=== PATIENT | male | born 1945 | race Caucasian/White ===

== ENCOUNTER 2024-03-03 09:10 | Day surgery (SDC) | payer MEDICARE, SELFPAY ==
[2024-02-28 08:06] VITALS: BMI 20.7
[2024-03-03] MEDS: Tetracaine HCl/PF 0.5% Oph Sol 4 ML DROPS 1 DROP EYE-LEFT (10:25)
[2024-03-03] MEDS: Cyclopentolate 1 % Ophth Sol 2 ML DRPBTL 1 DROP EYE-LEFT ×3 (10:26→10:42)
[2024-03-03] MEDS: Tropicamide 1 % Ophth Sol 3 ML BTL 1 DROP EYE-LEFT ×3 (10:28→10:44)
[2024-03-03] MEDS: Ketorolac Tromethamine 0.5% Op 10 ML DROPS 1 DROP EYE-LEFT ×3 (10:30→10:46)
[2024-03-03] MEDS: Phenylephrine HCL 2.5% Oph SoL 2 ML BOTTLE 1 DROP EYE-LEFT ×3 (10:32→10:48)
[2024-03-03] MEDS: Lactated Ringers 500 ML 50 ML IV (10:34)
[2024-03-03 10:35] VITALS: BP 146/72; PULSE 66; RESP 16; TEMP 36.6; O2SAT 97
--- NOTE | 2024-03-03 10:40 | HO.ANESPROP2 ---
Documented by User: Marisa Goyal NP 02/28/24 14:29 HPI - Anesthesia Eval Consult details Narrative: 78yo M for Left Cataract Extraction IOL Insertion No previous cataract on record [facility] Past Medical History Medical History (Updated 02/28/24 @ 07:59 by Luann العلي RN) Hearing loss Hyperlipidemia BPH (benign prostatic hyperplasia) HTN (hypertension) Diabetes Palpitations Lung nodule Osteoporosis Microalbuminuria Macular degeneration of both eyes CKD (chronic kidney disease) Chronic constipation Surgical History Surgical History (Updated 03/03/24 @ 10:26 by Ivy Tipton) Hx of cholecystectomy History of pancreatic surgery Social History Social History Patient Tobacco Use Status: Former Tobacco user Advance Directives: No Advance Directives Information Provided: Yes Advance Directives on File: No Meds Allergies Allergy/AdvReac Type Severity Reaction Status Date / Time simvastatin Allergy Joint Pain Verified 03/03/24 10:26 Home Medications ?Medication ?Instructions ?Recorded ?Confirmed ?Last Taken ?Type amlodipine 10 mg tablet 10 mg PO DAILY 02/28/24 02/28/24 Unknown History atorvastatin 10 mg tablet 10 mg PO BEDTIME 02/28/24 02/28/24 Unknown History coenzyme Q10 10 mg capsule 10 mg PO DAILY 02/28/24 02/28/24 Unknown History hydrochlorothiazide 12.5 mg tablet 12.5 mg PO DAILY 02/28/24 02/28/24 Unknown History insulin glargine 100 unit/mL (3 20 unit subcut BEDTIME 02/28/24 03/03/24 03/02/24 History mL) subcutaneous pen (Lantus Solostar U-100 Insulin) metformin 1,000 mg tablet 1,000 mg PO BID 02/28/24 02/28/24 Unknown History multivit,calcium,min-folic acid 1 tab PO DAILY 02/28/24 02/28/24 Unknown History 240 mcg-D3 25 mcg-lycop 300 mcg tablet (One A Day Men Complete) olmesartan 40 mg tablet 40 mg PO DAILY 02/28/24 02/28/24 Unknown History polyethylene glycol 3350 17 17 g PO DAILY PRN Constipation 02/28/24 02/28/24 Unknown History gram/dose oral powder (Miralax) tamsulosin 0.4 mg capsule 0.4 mg PO DAILY 02/28/24 02/28/24 Unknown History Exam Height,Weight and Vital Signs: Height 5 ft 2.5 in Weight 52.163 kg Assessment and Plan Assessment Anesthesia Assessment: Chart Reviewed Documented by User: Savannah Neely, 03/03/24 10:43 [facility] Past Medical History Medical History (Updated 02/28/24 @ 07:59 by Luann العلي RN) Hearing loss Hyperlipidemia BPH (benign prostatic hyperplasia) HTN (hypertension) Diabetes Palpitations Lung nodule Osteoporosis Microalbuminuria Macular degeneration of both eyes CKD (chronic kidney disease) Chronic constipation Family History Family history of problems with anesthesia: No Surgical History Surgical History (Updated 03/03/24 @ 10:26 by Ivy Tipton) Hx of cholecystectomy History of pancreatic surgery History of Problems with Anesthesia: No Social History Social History Patient Tobacco Use Status: Former Tobacco user Advance Directives: No Advance Directives Information Provided: Yes Advance Directives on File: No Meds Allergies Allergy/AdvReac Type Severity Reaction Status Date / Time simvastatin Allergy Joint Pain Verified 03/03/24 10:26 Home Medications ?Medication ?Instructions ?Recorded ?Confirmed ?Last Taken ?Type amlodipine 10 mg tablet 10 mg PO DAILY 02/28/24 02/28/24 Unknown History atorvastatin 10 mg tablet 10 mg PO BEDTIME 02/28/24 02/28/24 Unknown History coenzyme Q10 10 mg capsule 10 mg PO DAILY 02/28/24 02/28/24 Unknown History hydrochlorothiazide 12.5 mg tablet 12.5 mg PO DAILY 02/28/24 02/28/24 Unknown History insulin glargine 100 unit/mL (3 20 unit subcut BEDTIME 02/28/24 03/03/24 03/02/24 History mL) subcutaneous pen (Lantus Solostar U-100 Insulin) metformin 1,000 mg tablet 1,000 mg PO BID 02/28/24 02/28/24 Unknown History multivit,calcium,min-folic acid 1 tab PO DAILY 02/28/24 02/28/24 Unknown History 240 mcg-D3 25 mcg-lycop 300 mcg tablet (One A Day Men Complete) olmesartan 40 mg tablet 40 mg PO DAILY 02/28/24 02/28/24 Unknown History polyethylene glycol 3350 17 17 g PO DAILY PRN Constipation 02/28/24 02/28/24 Unknown History gram/dose oral powder (Miralax) tamsulosin 0.4 mg capsule 0.4 mg PO DAILY 02/28/24 02/28/24 Unknown History Exam Exam Date and Time: March 03, 2024 1040 Airway Mallampati Class: II TM Dist: >3cm Neck ROM: Full Denture: Upper and Lower Heart: S1S2 Lungs: CTAB Assessment and Plan Assessment Anesthesia Assessment: Anesthesia Plan Discussed and Chart Reviewed Final Anesthetic Review Family History of Problems with Anesthesia: No History of Problems with Anesthesia: No NPO: Yes ASA Class: III Final Preanesthetic Review: No Changes in Pt Med Stat, Meds/Allgs Chart Reviewed, Consent Obtained/Reviewed (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 and Plan Disposition: Standard PACU
[2024-03-03 10:41] LABS: Glucose, Whole Blood 136 mg/dL (60-115)
--- NOTE | 2024-03-03 11:29 | MHC.SHP ---
Pre-Procedural Eval Section A - 24 Hr Update-Section A only Date of Service: 03/03/24 The patient is an INPATIENT: No Changes since office visit: No Cold of Flu in the past 2 weeks, No New Medical Problems, No Changes in Medication and No Patient answered all questions The patient has been examined within 24 hours of the surgical procedure. The History & Physical has been completed within 30 days and I have reviewed it.: Yes Section B - Complete if H&P > 30 days Chief Complaint: Age-related nuclear cataract, left eye Allergies: Allergies Allergy/AdvReac Type Severity Reaction Status Date / Time simvastatin Allergy Joint Pain Verified 03/03/24 10:26 Plan Diagnosis/Plan: Unchanged I have reviewed the history and physical and performed a pertinent physical examination on my patient. No changes have occurred unless specified. Time Spent With Patient Time: Total time managing care of this patient today ____ minutes.
--- NOTE | 2024-03-03 11:29 | HO.PNOPHT ---
Ophthalmology Procedure Procedure Date of Service: 03/03/24 Ophthalmology Viscoelastic: Healon Duet Dual Pack Pro Ophthalmology Lenses: IOL Acrysof MP - MA60AC (21) Procedure Notes: PREOPERATIVE DIAGNOSIS: Decreased visual acuity left eye secondary to cataract POSTOPERATIVE DIAGNOSIS: Same PROCEDURE: Left cataract extraction with intraocular lens insertion SURGEON: Teo Read M.D. ANESTHESIA: Topical/MAC ESTIMATED BLOOD LOSS: None COMPLICATIONS: None After obtaining informed consent, the patient was brought to the operation room suite and placed in the supine position. After adequate sedation per anesthesia, topical drops of Tetracaine were given to the left eye. The eye was then prepped and draped in the usual sterile fashion. The operating room microscope was then positioned over the operative eye and a lid speculum placed. A paracentesis was created. Viscoelastic was then instilled into the anterior chamber. A three plane incision was then created temporally, utilizing a 2.85 mm keratome. Capsulotomy forceps were then utilized to create a circular tear capsulotomy. Hydrodissection and hydrodelineation were carried out until adequate mobilization of the nucleus occurred. Phacoemulsification was then utilized to remove the dense central nucleus followed by removal of the cortical material utilizing the automated aspiration irrigation unit. Viscoat elastic was instilled into the posterior capsular bag followed by placement of a posterior chamber intraocular lens without difficulty. The residual Viscoat elastic was then removed utilizing the automated IA machine. The wound was check and found to be watertight. The patient tolerated the procedure well and the lid speculum was removed. Intracameral injection of Vigamox 0.1 mL followed by a subtenon injection of Kenalog-40 0.2 mL were administered. The patient will be seen in the a.m.
[2024-03-03 12:10] VITALS: BP 143/69; PULSE 68; RESP 18; TEMP 36.3; O2SAT 97
== END 2024-03-03 12:12 | disposition home or self-care (01) ==
PROVIDERS: PCP Internal Medicine; Visit Provider Ophthalmology
PROC: (CPT 66985; principal; 2024-03-03 11:20)
DX: H25.12 Age-related nuclear cataract, left eye (principal); H54.7 Unspecified visual loss; H40.013 Open angle with borderline findings, low risk, bilateral; H35.3132 Nonexudative age-related macular degeneration, bilateral, intermediate dry stage; H18.413 Arcus senilis, bilateral; I12.9 Hypertensive chronic kidney disease with stage 1 through stage 4 chronic kidney disease, or unspecified chronic kidney disease; E11.22 Type 2 diabetes mellitus with diabetic chronic kidney disease; N18.31 Chronic kidney disease, stage 3a; Z79.4 Long term (current) use of insulin; Z79.84 Long term (current) use of oral hypoglycemic drugs; Z79.899 Other long term (current) drug therapy; Z87.891 Personal history of nicotine dependence
CPT/HCPCS: 66984; 82947; J3010; J3301; V2630

== ENCOUNTER 2024-03-17 08:22 | Day surgery (SDC) | payer MEDICARE, SELFPAY ==
[2024-02-28 08:11] VITALS: BMI 20.7
--- NOTE | 2024-03-13 13:52 | HO.ANESPROP2 ---
HPI - Anesthesia Eval Consult details Narrative: 78yo M for Right Cataract Extraction IOL Insertion Left eye 03/03/24: Fent 50 PMFSH Past Medical History Medical History (Updated 02/28/24 @ 07:59 by Luann العلي RN) Hearing loss Hyperlipidemia BPH (benign prostatic hyperplasia) HTN (hypertension) Diabetes Palpitations Lung nodule Osteoporosis Microalbuminuria Macular degeneration of both eyes CKD (chronic kidney disease) Chronic constipation Family History Family history of problems with anesthesia: No Surgical History Surgical History (Updated 03/03/24 @ 10:50 by Ivy Tipton RN) H/O hand surgery Hx of cholecystectomy History of pancreatic surgery History of Problems with Anesthesia: No Social History Social History Patient Tobacco Use Status: Former Tobacco user Advance Directives: No Advance Directives Information Provided: Yes Advance Directives on File: No Meds Allergies Allergy/AdvReac Type Severity Reaction Status Date / Time simvastatin Allergy Joint Pain Verified 03/03/24 10:26 Home Medications ?Medication ?Instructions ?Recorded ?Confirmed ?Last Taken ?Type amlodipine 10 mg tablet 10 mg PO DAILY 02/28/24 02/28/24 Unknown History atorvastatin 10 mg tablet 10 mg PO BEDTIME 02/28/24 02/28/24 Unknown History coenzyme Q10 10 mg capsule 10 mg PO DAILY 02/28/24 02/28/24 Unknown History hydrochlorothiazide 12.5 mg tablet 12.5 mg PO DAILY 02/28/24 02/28/24 Unknown History insulin glargine 100 unit/mL (3 20 unit subcut BEDTIME 02/28/24 03/03/24 03/02/24 History mL) subcutaneous pen (Lantus Solostar U-100 Insulin) metformin 1,000 mg tablet 1,000 mg PO BID 02/28/24 02/28/24 Unknown History multivit,calcium,min-folic acid 1 tab PO DAILY 02/28/24 02/28/24 Unknown History 240 mcg-D3 25 mcg-lycop 300 mcg tablet (One A Day Men Complete) olmesartan 40 mg tablet 40 mg PO DAILY 02/28/24 02/28/24 Unknown History polyethylene glycol 3350 17 17 g PO DAILY PRN Constipation 02/28/24 02/28/24 Unknown History gram/dose oral powder (Miralax) tamsulosin 0.4 mg capsule 0.4 mg PO DAILY 02/28/24 02/28/24 Unknown History Exam Height,Weight and Vital Signs: Height 5 ft 2.5 in Weight 52.163 kg Assessment and Plan Assessment Anesthesia Assessment: Chart Reviewed Final Anesthetic Review Family History of Problems with Anesthesia: No History of Problems with Anesthesia: No
[2024-03-17] MEDS: Tetracaine HCl/PF 0.5% Oph Sol 4 ML DROPS 1 DROP EYE-RIGHT (10:47)
[2024-03-17] MEDS: Cyclopentolate 1 % Ophth Sol 2 ML DRPBTL 1 DROP EYE-RIGHT ×3 (10:48→11:04)
[2024-03-17] MEDS: Tropicamide 1 % Ophth Sol 3 ML BTL 1 DROP EYE-RIGHT ×3 (10:50→11:06)
[2024-03-17] MEDS: Ketorolac Tromethamine 0.5% Op 10 ML DROPS 1 DROP EYE-RIGHT ×3 (10:52→11:08)
[2024-03-17] MEDS: Phenylephrine HCL 2.5% Oph SoL 2 ML BOTTLE 1 DROP EYE-RIGHT ×3 (10:54→11:10)
[2024-03-17 11:16] VITALS: BP 155/58; PULSE 69; RESP 16; TEMP 36.3; O2SAT 96
[2024-03-17] MEDS: Lactated Ringers 500 ML 50 ML IV (11:21)
[2024-03-17 11:29] LABS: Glucose, Whole Blood 162 mg/dL (60-115)
--- NOTE | 2024-03-17 12:02 | MHC.SHP ---
Pre-Procedural Eval Section A - 24 Hr Update-Section A only Date of Service: 03/17/24 The patient is an INPATIENT: No Changes since office visit: No Cold of Flu in the past 2 weeks, No New Medical Problems, No Changes in Medication and No Patient answered all questions The patient has been examined within 24 hours of the surgical procedure. The History & Physical has been completed within 30 days and I have reviewed it.: Yes Section B - Complete if H&P > 30 days Chief Complaint: Age-related nuclear cataract, right eye Allergies: Allergies Allergy/AdvReac Type Severity Reaction Status Date / Time simvastatin Allergy Joint Pain Verified 03/03/24 10:26 Plan Diagnosis/Plan: Unchanged I have reviewed the history and physical and performed a pertinent physical examination on my patient. No changes have occurred unless specified. Time Spent With Patient Time: Total time managing care of this patient today ____ minutes.
--- NOTE | 2024-03-17 12:03 | P.PCNO_ITS ---
Ophthalmology Procedure Procedure Date of Service: 03/17/24 Ophthalmology Viscoelastic: Healon Duet Dual Pack Pro Ophthalmology Lenses: IOL Acrysof MP - MA60AC (21.5) Procedure Notes: PREOPERATIVE DIAGNOSIS: Decreased visual acuity right eye secondary to cataract POSTOPERATIVE DIAGNOSIS: Same PROCEDURE: Right cataract extraction with intraocular lens insertion SURGEON: Teo Read M.D. ANESTHESIA: Topical/MAC ESTIMATED BLOOD LOSS: None COMPLICATIONS: None After obtaining informed consent, the patient was brought to the operating room suite and placed in the supine position. After adequate sedation per anesthesia, topical drops of Tetracaine were given to the right eye. The eye was then prepped and draped in the usual sterile fashion. The operating room microscope was then positioned over the operative eye and a lid speculum placed. A paracentesis was created. Viscoelastic was then instilled into the anterior chamber. A three plane incision was then created temporally, utilizing a 2.85 mm keratome. Capsulotomy forceps were then utilized to create a circular tear capsulotomy. Hydrodissection and hydrodelineation were carried out until adequate mobilization of the nucleus occurred. Phacoemulsification was then utilized to remove the dense central nu cleus followed by removal of the cortical material utilizing the automated aspiration irrigation unit. Viscoelastic was instilled into the posterior capsular bag followed by placement of a posterior chamber intraocular lens without difficulty. The residual Viscoelastic was then removed utilizing the automated IA machine. The wound was checked and found to be watertight. The patient tolerated the procedure well and the lid speculum was removed. Intracameral injection of Vigamox 0.1 mL followed by a subtenon injection of Kenalog-40 0.2 mL were administered. The patient will be seen in the a.m.
[2024-03-17 12:35] VITALS: BP 165/67; PULSE 57; RESP 16; TEMP 36.6; O2SAT 98
== END 2024-03-17 12:55 | disposition home or self-care (01) ==
PROVIDERS: PCP Internal Medicine; Visit Provider Ophthalmology
PROC: (CPT 66985; principal; 2024-03-17 12:20)
DX: H25.11 Age-related nuclear cataract, right eye (principal); H54.7 Unspecified visual loss; H35.3132 Nonexudative age-related macular degeneration, bilateral, intermediate dry stage; H40.013 Open angle with borderline findings, low risk, bilateral; H18.413 Arcus senilis, bilateral; I10 Essential (primary) hypertension; E11.9 Type 2 diabetes mellitus without complications; Z79.4 Long term (current) use of insulin; Z79.84 Long term (current) use of oral hypoglycemic drugs; Z79.899 Other long term (current) drug therapy; Z87.891 Personal history of nicotine dependence; Z98.890 Other specified postprocedural states
CPT/HCPCS: 66984; 82947; J3010; J3301; V2630